=== PATIENT | male | born 1960 | race Caucasian/White ===

== ENCOUNTER 2019-09-02 09:32 | Outpatient (REF) | payer BC, SELFPAY ==
[2019-09-02 20:54] LABS: ALT 34 U/L (16-63); AST 20 U/L (15-37); Albumin 3.7 g/dL (3.4-5.0); Alkaline Phosphatase 83 U/L (46-116); BUN 17 mg/dL (7-18); Bilirubin, Total 0.3 mg/dL (0.2-1.0); CREATININE 0.79 mg/dL (0.70-1.30); Calcium 8.4 mg/dL (8.5-10.1); Calculated LDL 108 mg/dL; Chloride 103 mmol/L (98-107); Cholesterol 189 mg/dL (50-200); Glucose 98 mg/dL (70-100); HDL Cholesterol 54 mg/dL (40-60); Potassium 4.1 mmol/L (3.5-5.1); Sodium 140 mmol/L (136-145); Total Protein 7.2 g/dL (6.4-8.2); Triglyceride 137 mg/dL (30-150)
== END 2019-09-02 09:52 ==
LOC: NCHCN 09:32
PROVIDERS: PCP Internal Medicine; Visit Provider Nurse Practitioner Family
DX: E78.5 Hyperlipidemia, unspecified (principal); I10 Essential (primary) hypertension
CPT/HCPCS: 80053; 80061

== ENCOUNTER 2021-09-21 12:03 | Outpatient (REF) | payer BC, SELFPAY ==
[2021-09-21 19:42] LABS: HCT 42.9 % (40.0-50.0); HGB 14.5 g/dL (13.5-17.5); MCH 29.4 pg (27.0-33.0); MCHC 33.8 % (32.0-36.0); MPV 9.3 fL (8.0-11.0); Platelet Count 289 10^3/uL (130-400); RBC 4.93 10^6/uL (4.36-5.78); RDW-SD 38.6 fL; WBC 7.24 10^3/uL (4.4-10.8)
[2021-09-21 19:53] LABS: ALT 54 U/L (16-63); AST 30 U/L (15-37); Albumin 3.6 g/dL (3.4-5.0); Alkaline Phosphatase 92 U/L (46-116); BUN 23 mg/dL (7-18); Bilirubin, Total 0.1 mg/dL (0.2-1.0); CREATININE 0.7 mg/dL (0.70-1.30); Calcium 8.8 mg/dL (8.5-10.1); Chloride 102 mmol/L (98-107); Glucose 94 mg/dL (74-106); Sodium 138 mmol/L (136-145); Total Protein 7.5 g/dL (6.4-8.2)
[2021-09-21 20:34] LABS: PHENYTOIN (DILANTIN) 5.6 ug/mL (10.0-20.0)
== END 2021-09-21 12:04 | disposition home or self-care (01) ==
LOC: NCHCN 12:03
PROVIDERS: PCP Internal Medicine; Visit Provider Internal Medicine
DX: I10 Essential (primary) hypertension (principal); I25.10 Atherosclerotic heart disease of native coronary artery without angina pectoris; G40.309 Generalized idiopathic epilepsy and epileptic syndromes, not intractable, without status epilepticus
CPT/HCPCS: 80053; 85027; 80185

== ENCOUNTER 2023-01-03 17:22 | Outpatient (REF) | payer BC, SELFPAY ==
[2023-01-03 18:31] LABS: HCT 43.6 % (40.0-50.0); HGB 15.3 g/dL (13.5-17.5); MCH 30.1 pg (27.0-33.0); MCHC 35.1 % (32.0-36.0); MCV 86 fL (80-95); MPV 9.5 fL (8.0-11.0); Platelet Count 228 10^3/uL (130-400); RBC 5.09 10^6/uL (4.36-5.78); RDW 12.2 % (11.8-14.1); RDW-SD 38.5 fL; WBC 5.76 10^3/uL (4.4-10.8)
[2023-01-03 18:46] LABS: ALT 40 U/L (16-63); AST 32 U/L (15-37); Albumin 3.8 g/dL (3.4-5.0); Alkaline Phosphatase 83 U/L (46-116); Anion Gap 8.2 mmol/L (3-11); BUN 17 mg/dL (7-18); Bilirubin, Total 0.1 mg/dL (0.2-1.0); CO2 28.8 mmol/L (21.0-32.0); CREATININE 0.7 mg/dL (0.70-1.30); Calcium 9.1 mg/dL (8.5-10.1); Calculated LDL 74 mg/dL (<100); Chloride 102 mmol/L (98-107); Cholesterol 174 mg/dL (<200); Estimated GFR 104.83 (mL/min/1.73m2); Glucose 91 mg/dL (74-106); HDL Cholesterol 65 mg/dL (40-60); Potassium 3.9 mmol/L (3.5-5.1); Sodium 139 mmol/L (136-145); Total Protein 7.5 g/dL (6.4-8.2); Triglyceride 176 mg/dL (<150)
[2023-01-03 18:53] LABS: PHENYTOIN (DILANTIN) 8.3 ug/mL (10.0-20.0)
[2023-01-04 21:11] LABS: PSA, Screening 0.4 ng/mL (<=4.5)
== END 2023-01-03 17:23 | disposition home or self-care (01) ==
LOC: NCHCN 17:22
PROVIDERS: PCP Internal Medicine; Visit Provider Internal Medicine
DX: I10 Essential (primary) hypertension (principal); I25.10 Atherosclerotic heart disease of native coronary artery without angina pectoris; N40.0 Benign prostatic hyperplasia without lower urinary tract symptoms; Z12.5 Encounter for screening for malignant neoplasm of prostate
CPT/HCPCS: 80053; 80061; 84153; 85027; 80185

== ENCOUNTER 2024-07-20 18:30 | Outpatient (REF) | payer BC, SELFPAY ==
[2024-07-20 19:32] LABS: HCT 44.1 % (40.0-50.0); HGB 15.2 g/dL (13.5-17.5); MCH 30.2 pg (27.0-33.0); MCHC 34.5 % (32.0-36.0); MCV 88 fL (80-95); MPV 9.4 fL (8.0-11.0); Platelet Count 230 10^3/uL (130-400); RBC 5.04 10^6/uL (4.36-5.78); RDW 12.2 % (11.8-14.1); RDW-SD 39.1 fL; WBC 5.96 10^3/uL (4.4-10.8)
[2024-07-20 19:45] LABS: ALT 41 U/L (16-63); AST 35 U/L (15-37); Albumin 4.2 g/dL (3.4-5.0); Alkaline Phosphatase 83 U/L (46-116); Anion Gap 8.4 mmol/L (3-11); BUN 22 mg/dL (7-18); Bilirubin, Total 0.44 mg/dL (0.2-1.0); CO2 30.6 mmol/L (21.0-32.0); CREATININE 0.8 mg/dL (0.70-1.30); Calcium 8.9 mg/dL (8.5-10.1); Calculated LDL 92 mg/dL (<100); Chloride 98 mmol/L (98-107); Cholesterol 191 mg/dL (<200); Estimated GFR 100.06 (mL/min/1.73m2); Glucose 89 mg/dL (74-106); HDL Cholesterol 72 mg/dL (40-60); Potassium 3.6 mmol/L (3.5-5.1); Sodium 137 mmol/L (136-145); Total Protein 7.9 g/dL (6.4-8.2); Triglyceride 138 mg/dL (<150)
[2024-07-21 19:28] LABS: PSA, Diagnostic 0.4 ng/mL (<=4.5)
== END 2024-07-20 18:31 | disposition home or self-care (01) ==
LOC: NCHCN 18:30
PROVIDERS: PCP Internal Medicine; Visit Provider Internal Medicine
DX: N40.1 Benign prostatic hyperplasia with lower urinary tract symptoms (principal); E78.2 Mixed hyperlipidemia; G40.409 Other generalized epilepsy and epileptic syndromes, not intractable, without status epilepticus
CPT/HCPCS: 80053; 80061; 85027; 80185; 84153

== ENCOUNTER 2025-04-05 15:15 | Outpatient (REF) | payer BC, SELFPAY ==
[2025-04-05 18:47] LABS: HCT 42.3 % (40.0-50.0); HGB 14.7 g/dL (13.5-17.5); MCHC 34.8 % (32.0-36.0); MCV 86 fL (80-95); MPV 9.5 fL (8.0-11.0); Platelet Count 230 10^3/uL (130-400); RDW 12.4 % (11.8-14.1); WBC 6.27 10^3/uL (4.4-10.8)
[2025-04-05 19:21] LABS: ALT 39 U/L (16-63); AST 32 U/L (15-37); Albumin 4.1 g/dL (3.4-5.0); Alkaline Phosphatase 107 U/L (46-116); Anion Gap 5.9 mmol/L (3-11); BUN 16 mg/dL (7-18); Bilirubin, Total 0.4 mg/dL (0.2-1.0); CO2 29.1 mmol/L (21.0-32.0); CREATININE 0.7 mg/dL (0.70-1.30); Calcium 9.1 mg/dL (8.5-10.1); Chloride 100 mmol/L (98-107); Estimated GFR 103.53 (mL/min/1.73m2); Glucose 76 mg/dL (74-106); Potassium 3.6 mmol/L (3.5-5.1); Sodium 135 mmol/L (136-145); Total Protein 7.9 g/dL (6.4-8.2)
[2025-04-06 18:40] LABS: PHENYTOIN (DILANTIN) 8.2 ug/mL (10.0-20.0)
[2025-04-06 21:04] LABS: Calculated LDL 84 mg/dL (<100); Cholesterol 182 mg/dL (<200); HDL Cholesterol 72 mg/dL (>or=40); Triglyceride 131 mg/dL (<150)
== END 2025-04-05 15:16 | disposition home or self-care (01) ==
LOC: NCHCN 15:15
PROVIDERS: PCP Internal Medicine; Visit Provider Internal Medicine
DX: G40.309 Generalized idiopathic epilepsy and epileptic syndromes, not intractable, without status epilepticus (principal); E78.2 Mixed hyperlipidemia
CPT/HCPCS: 80053; 80061; 85027; 80185

== ENCOUNTER 2025-05-20 00:41 | Outpatient (CLI) | payer BC, SELFPAY ==
--- NOTE | 2025-05-20 08:00 | DI.RAD_ITS ---
Exam(s) XR FOOT LT COMPLETE EXAM: XR FOOT LT COMPLETE CLINICAL HISTORY: left foot pain,M79.672. TECHNIQUE: 2D digital imaging was performed. Three views. COMPARISON: No exams were available for comparison FINDINGS: BONES: No acute fracture is present. No bony destructive lesion is seen. Small enthesophyte at Achilles insertion. Prominent plantar calcaneal spur. JOINTS: No dislocation present. SOFT TISSUE: Vascular calcifications IMPRESSION: Prominent heel spur. DATA REPOSITORY: RADIATION DOSE DELIVERED:
== END 2025-05-20 01:01 ==
PROVIDERS: PCP Internal Medicine; Visit Provider Podiatrist
DX: M79.672 Pain in left foot (principal)
CPT/HCPCS: 73630